=== PATIENT | male | born 1945 | race Caucasian/White ===

== ENCOUNTER → 2017-04-01 19:47 | Outpatient (CLI) | payer OTHER ==
[2017-04-01 20:38] LABS: INR 4.3 (0.85-1.17); PROTIME 40.3 SECONDS (11.6-15.0)
== END | disposition home or self-care (01) ==
LOC: D.LABREF 19:47
DX: Z51.81 Encounter for therapeutic drug level monitoring (principal); Z79.01 Long term (current) use of anticoagulants